=== PATIENT | male | born 2000 | race Caucasian/White ===

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

== ENCOUNTER 2020-05-20 16:17 | Outpatient (CLI) | payer OTHER, SELFPAY | END 2020-05-20 20:51 | disposition home or self-care (01) | LOC: SLB 16:17 | PROVIDERS: ATTEND Internal Medicine | DX: U07.1 COVID-19 (principal) | CPT/HCPCS: 36415 ==